=== PATIENT | male | born 1995 | race Caucasian/White ===

== ENCOUNTER → 2017-08-29 | Outpatient (CLI) | payer OTHER ==
[~2017-08-29] MED LIST: CEPH-13 PO; CIPR-344 PO; IBUP-56 PO; IBUP200C71 PO; LOR5/325 PO; PER PO; SILV20CR2 TP
--- NOTE | 2017-08-29 13:50 | EKG ---
FACILITY: [facility] [place] PATIENT NAME: DON BLACK : [id number] MR: [id number]: [id number] EXAM DATE: ORDERING PHYSICIAN: ANDREA CASTILLO TECHNOLOGIST: KANDY Test Reason : BASELINE EKG Blood Pressure : / mmHG Vent. Rate : 071 BPM Atrial Rate : 071 BPM P-R Int : 144 ms QRS Dur : 098 ms QT Int : 404 ms P-R-T Axes : 058 047 034 degrees QTc Int : 439 ms Normal sinus rhythm Normal ECG No previous ECGs available Confirmed by ANDREA CASTILLO ([id number]) on 08/29/2017 3:03:43 PM Referred By: Confirmed By:ANDREA CASTILLO
[2017-08-29 14:18] LABS: PLATELET COUNT, AUTOMATED 174 K/uL (150-450)
== END ==
LOC: LAB 13:31
PROVIDERS: ATTEND Emergency Medicine
DX: F90.9 Attention-deficit hyperactivity disorder, unspecified type (principal)
CPT/HCPCS: 36415; 80305; 82040; 82247; 82310; 82374; 82435; 82565; 82607; 82947; 84075; 84132; 84155; 84295; 84443; 84450; 84460; 84520; 85025

== ENCOUNTER → 2017-09-04 | Outpatient (CLI) | payer OTHER ==
[~2017-09-04] MED LIST changes: +IBUP-136 PO; -IBUP200C71 PO
== END ==
LOC: LAB 19:29
PROVIDERS: ATTEND Emergency Medicine
DX: R74.8 Abnormal levels of other serum enzymes (principal)
CPT/HCPCS: 36415; 83540; 83550; 86703; 86706; 86707; 86803; 87340; 87350